=== PATIENT | female | born 1950 | race Two or more races ===

== ENCOUNTER 2021-05-01 00:54 | Inpatient (IN) | payer MEDICARE, MEDICAID ==
[~2021-05-01] VITALS: Ht 157.5 cm; Wt 87.8 kg
[2021-05-01] MEDS ORDERED: FUROSEMIDE 40 MG/4 ML VIAL IV ONE (01:30)
[2021-05-01 01:58] LABS: Eosinophils # (auto) 0.4 10 ^3/uL (0-0.8); Eosinophils % (auto) 2.9 % (0.0-7.0); Monocytes # (auto) 1.1 10 ^3/uL (0-1.3)
[2021-05-01 01:59] LABS: Basophils # (auto) 0.1 10 ^3/uL (0-0.2); Basophils % (auto) 0.8 % (0.0-2.0); Hematocrit 35.1 % (36.0-46.0); Hemoglobin 11.2 g/dL (12.2-16.2); Lymphocytes # (auto) 3.6 10 ^3/uL (0.4-5.4); Lymphocytes % (auto) 25.9 % (10.0-50.0); Mean Corpuscular Hemoglobin 27.2 pg (28.0-32.0); Mean Corpuscular Hgb Conc. 32.1 g/dL (32.0-36.0); Mean Corpuscular Volume 84.8 fL (80.0-100.0); Neutrophils # (auto) 8.7 10 ^3/uL (1.6-8.6); Neutrophils % (auto) 62.4 % (37.0-80.0); Nucleated Red Blood Cells % 0.1 %; Red Blood Cells 4.14 10^6/uL (4.0-5.20); Red Cell Distribution Width 16.3 % (11.8-14.3); White Blood Cell 13.9 10^3/uL (4.4-10.8)
[2021-05-01 02:26] LABS: Albumin 2.4 g/dL (3.4-5.0); Calcium 8.5 mg/dL (8.5-10.1); Potassium 4.3 mmol/L (3.5-5.1)
[2021-05-01 02:29] LABS: Bilirubin, Total 0.4 mg/dL (0.2-1.0); Total Protein 7.3 g/dL (6.4-8.2)
[2021-05-01 02:42] LABS: Urine Bacteria FEW /hpf (None Seen); Urine Blood Negative /uL (Negative); Urine Specific Gravity 1.015 (1.001-1.035); Urine WBC 17 /hpf (0 - 5)
[2021-05-01 02:43] LABS: INR 1.02 (0.9-1.15); Partial Thromboplastin Time 22.6 sec (23.6-33.0)
[2021-05-01] MEDS ORDERED: cefTRIAXone 1GM/50ML D5W 50 ML IV ONE (03:00)
[2021-05-01] MEDS ORDERED: ASPirin 325 MG TAB PO ONE (03:00)
[2021-05-01] MEDS ORDERED: NITROGLYCERIN 0.4 MG SL TAB SL ONE (03:15)
[2021-05-01] MEDS ORDERED: NITROGLYCERIN 0.4 MG SL TAB SL PRN (05:45)
[2021-05-01] MEDS ORDERED: ONDANSETRON HCL 4 MG/2 ML VIAL IV PRN (05:45)
[2021-05-01] MEDS ORDERED: DEXTROSE (50%) 50ML SYRG IV PRN ×2 (05:45→11:00)
[2021-05-01] MEDS ORDERED: TEMAZEPAM 15 MG CAP PO PRN (05:45)
[2021-05-01] MEDS ORDERED: ACETAMINOPHEN 325 MG TAB PO PRN (05:45)
[2021-05-01] MEDS ORDERED: MORPHINE SULFATE INJECTION 2 MG/ML SYRG IV PRN (05:45)
[2021-05-01] MEDS ORDERED: InsuLIN REG 1unit/0.01ml Soln (100units/ml) SC SCH (07:00)
[2021-05-01] MEDS ORDERED: ACCU-CHEK COMFORT CURVE STRIP VI SCH (07:00)
[2021-05-01] MEDS: ASPirin 81 mg TAB PO SCH (09:34)
[2021-05-01] MEDS: amLODIPine BESYLATE 5 MG TAB PO SCH (09:35)
[2021-05-01] MEDS: PANTOPRAZOLE 40 MG TAB PO SCH (09:36)
[2021-05-01] MEDS: ENOXAPARIN SOD 40 MG/0.4 ML SYRINGE SC SCH (09:36)
[2021-05-01] MEDS: METOPROLOL SUCCINATE XL 50 MG TAB PO SCH (09:36)
[2021-05-01] MEDS ORDERED: FUROSEMIDE 40 MG TAB PO SCH (10:00)
[2021-05-01] MEDS ORDERED: AZITHROMYCIN 500MG/ 250ML 250 ML IV ONE (11:00)
[2021-05-01] MEDS: hydrALAZINE HCL 20 MG/ML VL IV PRN (11:23)
[2021-05-01] MEDS: ACCU-CHEK COMFORT CURVE STRIP VI SCH ×3 (12:16→22:54)
[2021-05-01] MEDS: InsuLIN REG 1unit/0.01ml Soln (100units/ml) SC SCH ×3 (12:27→22:00)
[2021-05-01 13:00] VITALS: BP 153/81
[2021-05-01 16:00] VITALS: BP 153/81
[2021-05-01 17:00] VITALS: BP 129/62
[2021-05-01] MEDS: FUROSEMIDE 40 MG/4 ML VIAL IV SCH (17:47)
[2021-05-01] MEDS: cefTRIAXone 1GM/50ML D5W 50 ML IV SCH (21:00)
[2021-05-01 22:00] VITALS: BP 149/86
[2021-05-01] MEDS: ATORVASTATIN 20 MG TAB PO SCH (23:54)
[2021-05-02 05:00] VITALS: BP 148/80
[2021-05-02] MEDS: FUROSEMIDE 40 MG/4 ML VIAL IV SCH ×2 (06:31→17:40)
[2021-05-02] MEDS: InsuLIN REG 1unit/0.01ml Soln (100units/ml) SC SCH ×4 (06:31→21:34)
[2021-05-02] MEDS: ACCU-CHEK COMFORT CURVE STRIP VI SCH ×4 (06:31→21:30)
[2021-05-02 06:54] LABS: Basophils # (auto) 0.1 10 ^3/uL (0-0.2); Basophils % (auto) 0.8 % (0.0-2.0); Eosinophils # (auto) 0.4 10 ^3/uL (0-0.8); Eosinophils % (auto) 3.7 % (0.0-7.0); Hemoglobin 10.5 g/dL (12.2-16.2); Lymphocytes # (auto) 3.1 10 ^3/uL (0.4-5.4); Lymphocytes % (auto) 28.4 % (10.0-50.0); Mean Corpuscular Hemoglobin 27.3 pg (28.0-32.0); Mean Corpuscular Hgb Conc. 32.8 g/dL (32.0-36.0); Mean Corpuscular Volume 83.1 fL (80.0-100.0); Monocytes # (auto) 0.8 10 ^3/uL (0-1.3); Monocytes % (auto) 7.5 % (0.0-12.0); Neutrophils # (auto) 6.5 10 ^3/uL (1.6-8.6); Neutrophils % (auto) 59.6 % (37.0-80.0); Nucleated Red Blood Cells % 0.1 %; Red Blood Cells 3.85 10^6/uL (4.0-5.20); Red Cell Distribution Width 16.2 % (11.8-14.3)
[2021-05-02 07:10] LABS: Calcium 8.3 mg/dL (8.5-10.1); Potassium 3.9 mmol/L (3.5-5.1)
[2021-05-02 07:16] LABS: BUN/Creatinine Ratio 23.8; Magnesium 1.7 mg/dL (1.6-2.6)
[2021-05-02 08:34] VITALS: BP 142/67
[2021-05-02] MEDS: ASPirin 81 mg TAB PO SCH (09:48)
[2021-05-02] MEDS: AZITHROMYCIN 500MG/ 250ML 250 ML IV SCH (09:48)
[2021-05-02] MEDS: PANTOPRAZOLE 40 MG TAB PO SCH (09:49)
[2021-05-02] MEDS: amLODIPine BESYLATE 5 MG TAB PO SCH (09:49)
[2021-05-02] MEDS: ENOXAPARIN SOD 40 MG/0.4 ML SYRINGE SC SCH (09:50)
[2021-05-02] MEDS: METOPROLOL SUCCINATE XL 50 MG TAB PO SCH (09:50)
[2021-05-02] MEDS ORDERED: IOHEXOL 350 MG/ML 100ML IJ ONE (10:12)
[2021-05-02 13:00] VITALS: BP 128/68
[2021-05-02] MEDS: diphenhdrAMINE HCL 25 MG CAP PO PRN ×2 (13:40→21:43)
[2021-05-02 16:35] VITALS: BP 138/67
[2021-05-02] MEDS: cefTRIAXone 1GM/50ML D5W 50 ML IV SCH (21:29)
[2021-05-02] MEDS: ATORVASTATIN 20 MG TAB PO SCH (21:29)
[2021-05-02] MEDS: hydrALAZINE HCL 20 MG/ML VL IV PRN (21:31)
[2021-05-02 22:00] VITALS: BP 143/74
[2021-05-03 05:00] VITALS: BP 152/79
[2021-05-03 06:36] LABS: BUN/Creatinine Ratio 24.1; Calcium 8.7 mg/dL (8.5-10.1); Magnesium 1.9 mg/dL (1.6-2.6); Potassium 3.8 mmol/L (3.5-5.1)
[2021-05-03 06:38] LABS: Basophils # (auto) 0.1 10 ^3/uL (0-0.2); Basophils % (auto) 1.2 % (0.0-2.0); Eosinophils # (auto) 0.4 10 ^3/uL (0-0.8); Eosinophils % (auto) 3.7 % (0.0-7.0); Hematocrit 32.2 % (36.0-46.0); Hemoglobin 10.8 g/dL (12.2-16.2); Lymphocytes % (auto) 28.4 % (10.0-50.0); Mean Corpuscular Hemoglobin 27.6 pg (28.0-32.0); Mean Corpuscular Hgb Conc. 33.5 g/dL (32.0-36.0); Mean Corpuscular Volume 82.4 fL (80.0-100.0); Monocytes # (auto) 0.8 10 ^3/uL (0-1.3); Neutrophils # (auto) 6.4 10 ^3/uL (1.6-8.6); Neutrophils % (auto) 59.7 % (37.0-80.0); Nucleated Red Blood Cells % 0.1 %; Red Cell Distribution Width 15.6 % (11.8-14.3); White Blood Cell 10.7 10^3/uL (4.4-10.8)
[2021-05-03] MEDS: ACCU-CHEK COMFORT CURVE STRIP VI SCH ×4 (06:52→21:57)
[2021-05-03] MEDS: FUROSEMIDE 40 MG/4 ML VIAL IV SCH (06:52)
[2021-05-03] MEDS: InsuLIN REG 1unit/0.01ml Soln (100units/ml) SC SCH ×4 (06:53→21:57)
[2021-05-03 09:00] VITALS: BP 131/70
[2021-05-03] MEDS: AZITHROMYCIN 500MG/ 250ML 250 ML IV SCH (10:09)
[2021-05-03] MEDS: amLODIPine BESYLATE 5 MG TAB PO SCH (10:10)
[2021-05-03] MEDS: ENOXAPARIN SOD 40 MG/0.4 ML SYRINGE SC SCH (10:10)
[2021-05-03] MEDS: METOPROLOL SUCCINATE XL 50 MG TAB PO SCH (10:10)
[2021-05-03] MEDS: ASPirin 81 mg TAB PO SCH (10:11)
[2021-05-03] MEDS ORDERED: HYDROcodone-ACET 5/325MG TAB PO PRN (11:30)
[2021-05-03] MEDS: diphenhdrAMINE HCL 25 MG CAP PO PRN (12:05)
[2021-05-03 13:00] VITALS: BP 114/61
[2021-05-03 16:40] VITALS: BP 136/67
[2021-05-03] MEDS: cefTRIAXone 1GM/50ML D5W 50 ML IV SCH (21:57)
[2021-05-03] MEDS: ATORVASTATIN 20 MG TAB PO SCH (21:57)
[2021-05-03 22:00] VITALS: BP 112/67
[2021-05-04 05:00] VITALS: BP 134/67
[2021-05-04] MEDS: InsuLIN REG 1unit/0.01ml Soln (100units/ml) SC SCH ×4 (06:28→21:42)
[2021-05-04] MEDS: ACCU-CHEK COMFORT CURVE STRIP VI SCH ×4 (06:28→21:30)
[2021-05-04 06:46] LABS: BUN/Creatinine Ratio 24.7; Calcium 8.8 mg/dL (8.5-10.1); Potassium 3.9 mmol/L (3.5-5.1)
[2021-05-04 09:22] VITALS: BP 152/69
[2021-05-04] MEDS: AZITHROMYCIN 500MG/ 250ML 250 ML IV SCH (09:25)
[2021-05-04] MEDS: METOPROLOL SUCCINATE XL 50 MG TAB PO SCH (09:26)
[2021-05-04] MEDS: ENOXAPARIN SOD 40 MG/0.4 ML SYRINGE SC SCH (09:27)
[2021-05-04] MEDS: ASPirin 81 mg TAB PO SCH (09:27)
[2021-05-04] MEDS: amLODIPine BESYLATE 5 MG TAB PO SCH (09:27)
[2021-05-04] MEDS: SODIUM CHLORIDE 0.9% 1,000 ML IV SCH ×2 (12:20→23:24)
[2021-05-04 12:34] VITALS: BP 136/74
[2021-05-04 16:38] VITALS: BP 120/68
[2021-05-04] MEDS: ATORVASTATIN 20 MG TAB PO SCH (21:29)
[2021-05-04] MEDS: cefTRIAXone 1GM/50ML D5W 50 ML IV SCH (21:41)
[2021-05-04 22:00] VITALS: BP 128/52
[2021-05-05] MEDS: SODIUM CHLORIDE 0.9% 1,000 ML IV SCH (01:20)
[2021-05-05 05:00] VITALS: BP 121/69
[2021-05-05] MEDS: ACCU-CHEK COMFORT CURVE STRIP VI SCH (06:16)
[2021-05-05] MEDS: InsuLIN REG 1unit/0.01ml Soln (100units/ml) SC SCH (06:17)
[2021-05-05 07:23] LABS: BUN/Creatinine Ratio 26.3; Calcium 8.3 mg/dL (8.5-10.1); Potassium 4.1 mmol/L (3.5-5.1)
[2021-05-05 09:00] VITALS: BP 125/52
[2021-05-05] MEDS: ENOXAPARIN SOD 40 MG/0.4 ML SYRINGE SC SCH (10:00)
[2021-05-05] MEDS: ASPirin 81 mg TAB PO SCH (10:00)
[2021-05-05] MEDS: METOPROLOL SUCCINATE XL 50 MG TAB PO SCH (10:00)
[2021-05-05] MEDS: AZITHROMYCIN 500MG/ 250ML 250 ML IV SCH (10:00)
[2021-05-05] MEDS: amLODIPine BESYLATE 5 MG TAB PO SCH (10:00)
== END 2021-05-05 10:08 | disposition left against medical advice (07) | DRG 280 ==
LOC: EDBD 00:54 → ER 00:54 → TELE 05:44 → EDBD 05:44 → TELE-CENTR 11:30 → TELE-EAST 11:48 → TELE-CENTR 16:00
PROVIDERS: ADMIT Nurse Practitioner; ATTEND Internal Medicine Geriatric Medicine
DX: I21.4 Non-ST elevation (NSTEMI) myocardial infarction (principal); J18.9 Pneumonia, unspecified organism; I50.23 Acute on chronic systolic (congestive) heart failure; N17.0 Acute kidney failure with tubular necrosis; N39.0 Urinary tract infection, site not specified; I11.0 Hypertensive heart disease with heart failure; E11.65 Type 2 diabetes mellitus with hyperglycemia; R79.89 Other specified abnormal findings of blood chemistry; Z20.822 Contact with and (suspected) exposure to COVID-19; Z91.19 Patient's noncompliance with other medical treatment and regimen
CPT/HCPCS: 36415; 71045; 71275; 80048; 80053; 80061; 81001; 82962; 83036; 83605; 83690; 83735; 83880; 84443; 84484; 85025; 85379; 85610; 85730; 87426; 93005; 93306; 93970; 96365; 96367; 97116; 97162; 97530; G0378; J0696; J1815